=== PATIENT | female | born 1945 | race Caucasian/White ===

== ENCOUNTER 2024-05-24 06:48 | Outpatient (CLI) | payer MEDICARE, SELFPAY ==
--- NOTE | 2024-05-24 06:56 | MR_ITS ---
WS: [id number] MRI HEAD WITH CONTRAST WITH ATTENTION TO THE INTERNAL AUDITORY CANALS TECHNIQUE: Sagittal T1, T2 axial, T2 axial flair, axial susceptibility weighted imaging, axial diffus ion weighted images, and coronal T2 images were obtained. Pre and post T1 axial and post T1 coronal i mages. ADC and FSPGR images. Post gadolinium images with attention to the internal auditory canals. A xial fiesta imaging. CLINICAL INFORMATION: SENSORIAL HEARING LOSS, BILATERAL COMPARISON: None. FINDINGS: No evidence of restricted diffusion to suggest acute ischemia. Ventricular system and basal cisterns are patent. Mild small vessel changes. Mild parenchymal volume loss. Normal posterior fossa. Normal v ascular flow voids at the skull base. No extra-axial fluid collections. No evidence of mass or mass e ffect. Paranasal sinuses and mastoid air cells are well aerated. Normal posterior nasopharynx. No hem osiderin on susceptibility-weighted images. Normal optic chiasm and pituitary infundibulum. Temporal lobes and hippocampal formations are normal in appearance. Enhancing lesion in the RIGHT IAC measuring 5.8 x 3.3 mm compatible with vestibular sc hwannoma. LEFT IAC and CP angle are normal. No other abnormal intracranial foci of enhancement. Normal dural venous sinuses. Sella is normal in a ppearance. Normal pituitary enhancement. Normal cavernous sinuses and Meckel's cave. MR/MR iac's wo/w con* [id number] IMPRESSION: 1. Enhancing 5.8 x 3.3 mm nodule in the RIGHT IAC compatible with vestibular s chwannoma. 2. Normal LEFT IAC. 3. No other acute findings.
[2024-05-24] MEDS: gadobenate dimeglumine 20 mL vial 18 ML IV (08:34)
== END 2024-05-24 06:49 | disposition home or self-care (01) ==
PROVIDERS: Visit Provider Specialist
DX: H90.3 Sensorineural hearing loss, bilateral (principal); H61.891 Other specified disorders of right external ear
CPT/HCPCS: 70553; A9577

== ENCOUNTER 2024-12-20 10:21 | Outpatient (CLI) | payer MEDICARE, MEDICAID, SELFPAY ==
--- NOTE | 2024-12-20 14:29 | MR_ITS ---
WS: [id number] MRI HEAD WITH CONTRAST WITH ATTENTION TO THE INTERNAL AUDITORY CANALS TECHNIQUE: Sagittal T1, T2 axial, T2 axial flair, axial susceptibility weighted imaging, axial diffusion weighted images, and coronal T2 images were obtained. Pre and post T1 axial and post T1 coronal images. ADC and FSPGR images. Post gadolinium images with attention to the internal auditory canals. Axial fiesta imaging. CLINICAL INFORMATION: BILATERAL SENSORINEURAL HEARING LOSS COMPARISON: 2023 FINDINGS: Again seen is the enhancing lesion in the RIGHT IAC measuring approximately 6.0 x 3.3 mm compatible with vestibular schwannoma. This is unchanged in overall size and appearance compared to previous 05/24/2024. LEFT IAC and CP angle are normal. Normal trigeminal nerve root entry zones. No evidence of restricted diffusion to suggest acute ischemia. Mild small vessel changes. Mild parenchymal volume loss. Normal posterior fossa. Normal vascular flow voids at the skull base. Paranasal sinuses and mastoid air cells are well aerated. Normal posterior nasopharynx. No hemosiderin on susceptibility-weighted images Normal dural venous sinuses. MR/MR iac's wo/w con* [id number] IMPRESSION: 1. No change in the enhancing RIGHT IAC vestibular schwannoma measuring approx imately 6.0 x 3.3 mm. 2. LEFT IAC is normal in appearance. 3. No other suspicious findings or significant interval changes.
[2024-12-20] MEDS: gadobenate dimeglumine 20 mL vial 18 ML IV (15:58)
== END 2024-12-20 10:22 | disposition home or self-care (01) ==
PROVIDERS: Visit Provider Specialist
DX: H90.3 Sensorineural hearing loss, bilateral (principal); R90.89 Other abnormal findings on diagnostic imaging of central nervous system
CPT/HCPCS: 70553